=== PATIENT | male | born 1980 | race Caucasian/White ===

== ENCOUNTER 2018-03-21 10:11 | Emergency (ER) | payer OTHER ==
[2018-03-21 10:28] VITALS: BP 147/88; PULSE 90; RESP 18; TEMP 98.2; O2SAT 98
--- NOTE | 2018-03-21 11:14 | C.PDOC ---
History Of Present Illness 38 yo male w/PMhx of L-spine herniated disc, chronic lower back pain, come in for evaluation of lower back pain exacerbation for past few days. Pt admits, was seen by Spinal specialist yesterday and was referred for PT. 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 Pt reports, pain is localized over left lower back area with intermittent radiation to left inner thigh". Otherwise, pt denies fever, chills, abd. pain, N/V/D, UTi sx, saddle anesthesia, incontinence, denies new weakness, sensory or vascular deficits to B/L LEs. Ambulate to Ed for evaluation , in pain. Time Seen by Provider: 03/21/18 10:41 Chief Complaint (Nursing): Back Pain History Per: Patient Past Medical History Reviewed: Historical Data, Nursing Documentation, Vital Signs Vital Signs: Last Vital Signs Temp 98.2 F 03/21/18 10:25 Pulse 90 03/21/18 10:25 Resp 18 03/21/18 10:25 BP 147/88 03/21/18 10:25 Pulse Ox 98 03/21/18 11:14 - Medical History PMH: Back Problems Other Surgeries: L-spine lamienctomy 11/2017 Family History: States: No Known Family Hx - Social History Hx Alcohol Use: No Hx Substance Use: No Review Of Systems Except As Marked, All Systems Reviewed And Found Negative. Constitutional: Negative for: Fever, Chills ENT: Negative for: Throat Pain, Throat Swelling Cardiovascular: Negative for: Chest Pain Respiratory: Negative for: Cough, Shortness of Breath Gastrointestinal: Negative for: Nausea, Vomiting, Abdominal Pain, Diarrhea Genitourinary: Negative for: Dysuria, Incontinence Musculoskeletal: Positive for: Back Pain. Negative for: Neck Pain Skin: Negative for: Rash Neurological: Negative for: Weakness, Numbness, Headache, Dizziness Physical Exam - Physical Exam Appears: Well, Non-toxic, No Acute Distress Skin: Normal Color, Warm, Dry, No Ecchymosis Head: Normacephalic Eye(s): bilateral: PERRL Oral Mucosa: Moist Throat: No Erythema, No Drooling Neck: Normal ROM, Trachea Midline, No Midline Cervical Tenderness, No Paracervical Tenderness, No Step Off Deformity, Supple Gastrointestinal/Abdominal: Soft, No Tenderness, No Distention, No Guarding Back: No CVA Tenderness, No Vertebral Tenderness, Paraspinal Tenderness (Left lumbar with mild muscle spasm. No edema, no erythema, no flactulance.) Extremity: Normal ROM, No Tenderness, No Calf Tenderness (B/L), No Deformity, No Swelling Neurological/Psych: Oriented x3, Normal Speech, Normal Motor, Normal Sensation, Normal Reflexes ED Course And Treatment O2 Sat by Pulse Oximetry: 98 Pulse Ox Interpretation: Normal Progress Note: On re-evaluation, pt is afebrile, hemodynamicaly stable. Non- toxic. Ambulatory in ED with stable gait. ENT: no acute findings. Abd: benign , (-) guarding, (-) rebound. back: (-) CVA tenderness. Neurologicaly intact. Pt has clinical findings c/w left lumbar radiculopathy, chr with acute exacerbation. Pt advised on course of ds. ref. to f/u with PMD, PM in 2-3 days for re-evaluation. return if any new changes. Disposition Counseled Patient/Family Regarding: Diagnosis, Need For Followup, Rx Given - Disposition Referrals: [facility] [Outside] [facility] [Provider Group] [facility] [Provider Group] Disposition: HOME/ ROUTINE Disposition Time: 11:14 Condition: STABLE Additional Instructions: Consider back Brace for 2-3 weeks Take pain medication as prescribed as need Follow up with PMD, Spinal Surgery in 1-2 days for re-evaluation. return if any new changes. Prescriptions: Gabapentin [Neurontin] 300 mg PO TID #14 cap Ibuprofen [Motrin Tab] 600 mg PO TID #20 tab Methocarbamol [Robaxin] 500 mg PO TID #20 tab Instructions: Radiculopathy (DC) Forms: [employer] (Tajik) - Clinical Impression Clinical Impression: Lumbar radiculopathy
== END 2018-03-21 11:45 | disposition home or self-care (01) ==
LOC: C.ER 10:11
DX: M54.16 Radiculopathy, lumbar region (principal)
CPT/HCPCS: 96372; 99283; J1885